=== PATIENT | female | born 1985 | race Caucasian/White ===

== ENCOUNTER 2023-06-02 04:00 | Day surgery (SDC) | payer OTHER ==
[~2023-06-02] VITALS: Ht 165.1 cm; Wt 55.1 kg
[2023-06-02] VITALS (245 sets, daily range): BP systolic 85–151; BP diastolic 40–101
[2023-06-02 08:03] LABS: BASO% 0.3 % (0-3); EOS% 4.4 % (0-8); HEMATOCRIT 39.4 % (37.0-47.0); IMMATURE GRANULOCYTES 0.1 % (0.0-5.0); LYMPH% 40.8 % (15-41); MEAN CELL VOLUME 89.7 fL CALC (80.0-100.0); MEAN CORPUSCULAR HGB 29.6 pG CALC (26.0-32.0); MONO% 9.6 % (2-13); NEUT# 3.28 thou/uL (2.00-7.15); NEUT% 44.8 % (42-76); RED BLOOD COUNT 4.39 mill/uL (4.20-5.60); RED CELL DISTRI WIDTH 12.5 % (11.5-15.5)
[2023-06-02] MEDS ORDERED: NEURONTIN400 MG PO (09:16)
[2023-06-02] MEDS ORDERED: CLONIDINE0.2 MG PO (09:17)
[2023-06-02 09:22] LABS: ALBUMIN 3.9 g/dL (3.2-5.0); ALKALINE PHOSPHATASE 48 u/l (38-126); ANION GAP 10 (6-22 (CALC)); BILIRUBIN, TOTAL 0.1 mg/dL (0.02-1.3); BUN 12 mg/dL (7-17); BUN/CREATININE RATIO 17 (12-20 (CALC)); CARBON DIOXIDE 23 mmol/l (22-30); CHLORIDE 108 mmol/l (95-108); CREATININE 0.7 mg/dL (0.5-1.0); GFR FOR AFR.AMER. > 60 ML/MIN (>=60 (CALC)); GFR OTHER RACES > 60 ML/MIN (>=60 (CALC)); SGOT/AST 26 u/l (14-36); SODIUM 137 mmol/l (137-146); TOTAL PROTEIN 6.4 g/dL (6.3-8.2)
[2023-06-02] MEDS ORDERED: NALTREXONE50 MG PO (17:47)
[2023-06-02] MEDS ORDERED: CLONIDINE0.1 MG PO (17:47)
[2023-06-02] MEDS ORDERED: KLONOPIN2 MG PO (17:48)
[2023-06-03 04:13] VITALS: BP 142/78
[2023-06-03 07:46] VITALS: BP 129/67
[2023-06-03 07:46] LABS: BASO% 0.1 % (0-3); HEMATOCRIT 39.3 % (37.0-47.0); HEMOGLOBIN 12.1 g/dl (12.0-16.0); IMMATURE GRANULOCYTES 0.1 % (0.0-5.0); LYMPH% 10.4 % (15-41); MEAN CORPUSCULAR HGB 29.4 pG CALC (26.0-32.0); MEAN CORPUSCULAR HGB CONC 30.8 g/dL CAL (32.0-36.0); MONO% 4.4 % (2-13); NEUT# 7.7 thou/uL (2.00-7.15); RED BLOOD COUNT 4.12 mill/uL (4.20-5.60)
[2023-06-03 07:59] LABS: MEAN CELL VOLUME 95.4 fL CALC (80.0-100.0)
[2023-06-03 08:10] VITALS: BP 129/67
[2023-06-03 10:15] LABS: ALBUMIN 3.8 g/dL (3.2-5.0); ALKALINE PHOSPHATASE 34 u/l (38-126); ANION GAP 11 (6-22 (CALC)); BUN 14 mg/dL (7-17); BUN/CREATININE RATIO 20 (12-20 (CALC)); CARBON DIOXIDE 19 mmol/l (22-30); CHLORIDE 115 mmol/l (95-108); CREATININE 0.7 mg/dL (0.5-1.0); GFR FOR AFR.AMER. > 60 ML/MIN (>=60 (CALC)); GFR OTHER RACES > 60 ML/MIN (>=60 (CALC)); MAGNESIUM 2.1 mg/dL (1.6-2.3); POTASSIUM 3.8 mmol/l (3.5-5.1); SGOT/AST 38 u/l (14-36); SODIUM 141 mmol/l (137-146); TOTAL PROTEIN 6.4 g/dL (6.3-8.2)
[2023-06-03 10:29] LABS: BILIRUBIN, TOTAL 0.5 mg/dL (0.02-1.3)
[2023-06-04] MEDS ORDERED: CLONIDINE0.2 MG PO (22:47)
== END 2023-06-03 15:19 | disposition home or self-care (01) | DRG 897 ==
LOC: ANR 04:00 → MS2 04:00 → ANR 08:00
PROVIDERS: ATTEND Anesthesiology Critical Care Medicine
DX: F11.20 Opioid dependence, uncomplicated (principal)
CPT/HCPCS: J2354; J3475

== ENCOUNTER 2023-06-04 19:47 | Emergency (ER) | payer SELFPAY ==
[~2023-06-04] VITALS: Ht 165.1 cm; Wt 54.0 kg
[~2023-06-04 19:47] MED LIST: CLONIDINE0.1 MG PO; CLONIDINE0.2 MG PO; KLONOPIN2 MG PO; NALTREXONE50 MG PO; NEURONTIN400 MG PO
[2023-06-04 20:11] VITALS: BP 145/88
[2023-06-04 21:42] LABS: BASO% 0.2 % (0-3); EOS% 0.1 % (0-8); HEMOGLOBIN 11.6 g/dl (12.0-16.0); IMMATURE GRANULOCYTES 0.2 % (0.0-5.0); LYMPH% 26.5 % (15-41); MEAN CELL VOLUME 93.2 fL CALC (80.0-100.0); MEAN CORPUSCULAR HGB 29.2 pG CALC (26.0-32.0); MEAN CORPUSCULAR HGB CONC 31.4 g/dL CAL (32.0-36.0); MONO% 6.6 % (2-13); NEUT# 6.05 thou/uL (2.00-7.15); NEUT% 66.4 % (42-76); RED BLOOD COUNT 3.97 mill/uL (4.20-5.60)
[2023-06-04 21:52] LABS: ALBUMIN 3.9 g/dL (3.2-5.0); ALKALINE PHOSPHATASE 46 u/l (38-126); ANION GAP 9 (6-22 (CALC)); BILIRUBIN, TOTAL 0.4 mg/dL (0.02-1.3); BUN 7 mg/dL (7-17); BUN/CREATININE RATIO 12 (12-20 (CALC)); CARBON DIOXIDE 23 mmol/l (22-30); CHLORIDE 114 mmol/l (95-108); CREATININE 0.6 mg/dL (0.5-1.0); GFR FOR AFR.AMER. > 60 ML/MIN (>=60 (CALC)); GFR OTHER RACES > 60 ML/MIN (>=60 (CALC)); POTASSIUM 3.6 mmol/l (3.5-5.1); SGOT/AST 30 u/l (14-36); SODIUM 142 mmol/l (137-146); TOTAL PROTEIN 6.5 g/dL (6.3-8.2)
[2023-06-04] MEDS ORDERED: CLONIDINE0.2 MG PO (22:47)
[2023-06-04 23:11] VITALS: BP 145/88
== END 2023-06-04 23:12 | disposition home or self-care (01) | DRG 313 ==
LOC: ED 19:47
PROVIDERS: Family Medicine
DX: R07.9 Chest pain, unspecified (principal); M79.10 Myalgia, unspecified site; F11.23 Opioid dependence with withdrawal; F17.200 Nicotine dependence, unspecified, uncomplicated